=== PATIENT | male | born 1990 | race African-American/Black ===

== ENCOUNTER 2017-04-29 01:00 | Emergency (ER) | payer MEDICAID, OTHER ==
[~2017-04-29] VITALS: Ht 172.7 cm; Wt 95.3 kg
[2017-04-29 01:00] VITALS: BP 130/75
[~2017-04-29 01:00] MED LIST: ASPI81CH43 PO; Atorvastatin Calcium PO; CIPR-173 PO; ENA10T PO
[2017-04-29 01:25] LABS: Basophils # (auto) 0 uL; Basophils % (auto) 0.5 % (0.0-2.0); CONDITION Y; DEFINITIVE SEE PRINTOUT; Eosinophils # (auto) 0.1 uL; Eosinophils % (auto) 1.5 % (0.0-7.0); Hematocrit 45.1 % (41.0-53.0); Hemoglobin 14.9 g/dL (13.5-17.5); Lymphocytes # (auto) 3.2 uL; Lymphocytes % (auto) 36.2 % (10.0-50.0); Mean Corpuscular Hemoglobin 26.5 pg (28.0-32.0); Mean Corpuscular Hgb Conc. 33.1 g/dL (32.0-36.0); Mean Corpuscular Volume 80.1 fL (80.0-100.0); Mean Platelet Volume 10.3 fL (6.9-10.8); Monocytes # (auto) 0.3 uL; Monocytes % (auto) 3.5 % (0.0-12.0); Neutrophils # (auto) 5.2 uL; Neutrophils % (auto) 58.3 % (37.0-80.0); Platelet Count (auto) 211 10^3/uL (140-450); Red Cell Distribution Width 14.2 % (11.8-14.3); SUSPECT SEE PRINTOUT; White Blood Cell 8.9 10^3/uL (4.4-10.8)
[2017-04-29 01:38] LABS: Prothrombin Time 10.9 sec (9.37-12.3)
[2017-04-29 01:43] LABS: Albumin 4.3 g/dL (3.4-5.0); Anion Gap 8 (5-15); Aspartate Aminotransferase 31 U/L (15-37); BUN/Creatinine Ratio 13.1; Blood Urea Nitrogen 13 mg/dL (7-18); Calcium 8.2 mg/dL (8.5-10.1); Carbon Dioxide 25 mmol/L (21-32); Chloride 110 mmol/L (98-107); GFR African American 116 mL/min; GFR Non-African American 96 mL/min; Glucose 96 mg/dL (74-106); Potassium 3.9 mmol/L (3.5-5.1); Sodium 143 mmol/L (136-145)
[2017-04-29 01:46] LABS: Temperature: 20.5 C (20.0-25.0)
[2017-04-29 01:47] LABS: Alkaline Phosphatase 99 U/L (45-117); Bilirubin, Total 0.3 mg/dL (0.2-1.0); Total Protein 7.6 g/dL (6.4-8.2)
== END 2017-04-29 04:38 | disposition left against medical advice (07) ==
LOC: EDBD 01:00 → ER 01:03
DX: R07.9 Chest pain, unspecified (principal); Z53.21 Procedure and treatment not carried out due to patient leaving prior to being seen by health care provider
CPT/HCPCS: 36415; 80053; 83880; 84484; 85025; 85610; 85730

== ENCOUNTER 2024-03-17 09:23 | Emergency (ER) | payer MEDICARE, MEDICAID ==
[~2024-03-17] VITALS: Ht 162.6 cm; Wt 76.1 kg
[~2024-03-17 09:23] MED LIST changes: -ENA10T PO; +ENAL1TAB46 PO
[2024-03-17 09:43] VITALS: BP 132/91; PULSE 94; RESP 18; TEMP 98.7; O2SAT 95
[2024-03-17] MEDS: LIDOCAINE W/ EPINEPHRINE 1% 20ML VIAL IJ ONE (10:03)
[2024-03-17] MEDS ORDERED: CEPH500C PO (11:54)
== END 2024-03-17 12:02 | disposition home or self-care (01) ==
LOC: ER 09:23
DX: S41.111A Laceration without foreign body of right upper arm, initial encounter (principal); I11.0 Hypertensive heart disease with heart failure; I50.9 Heart failure, unspecified; I25.2 Old myocardial infarction; F17.210 Nicotine dependence, cigarettes, uncomplicated; F15.90 Other stimulant use, unspecified, uncomplicated; Z98.890 Other specified postprocedural states; Z79.899 Other long term (current) drug therapy; W22.8XXA Striking against or struck by other objects, initial encounter; Y93.89 Activity, other specified; Y92.89 Other specified places as the place of occurrence of the external cause; Y99.8 Other external cause status
CPT/HCPCS: 12004

== ENCOUNTER 2024-03-30 19:34 | Emergency (ER) | payer MEDICARE, MEDICAID ==
[~2024-03-30] VITALS: Ht 162.6 cm; Wt 77.2 kg
[~2024-03-30 19:34] MED LIST changes: +CEPH500C PO
[2024-03-30 19:40] VITALS: BP 158/100; PULSE 94; RESP 16; O2SAT 98
== END 2024-03-30 22:35 | disposition home or self-care (01) ==
LOC: ER 19:34
DX: S51.811D Laceration without foreign body of right forearm, subsequent encounter (principal); I11.0 Hypertensive heart disease with heart failure; I50.89 Other heart failure; F17.210 Nicotine dependence, cigarettes, uncomplicated; F12.90 Cannabis use, unspecified, uncomplicated; Z98.890 Other specified postprocedural states; Z79.899 Other long term (current) drug therapy; Z79.84 Long term (current) use of oral hypoglycemic drugs; X58.XXXD Exposure to other specified factors, subsequent encounter

== ENCOUNTER 2024-09-08 00:19 | Emergency (ER) | payer MEDICARE, MEDICAID ==
[~2024-09-08] VITALS: Ht 165.1 cm; Wt 77.2 kg
--- NOTE | 2024-09-08 01:04 | DVH ---
EXAM: CT HEAD WITHOUT CONTRAST INDICATION: Severe headache TECHNIQUE: CT of the head without intravenous contrast. Radiation Dose : 1. Head: CT Dose: CTDI volume is 57 mGy. Dose-length product is 1004 mGy*cm The dose indicators for CT are the volume Computed Tomography (CT) Dose Index (CTDIvol) and the Dose Length Product (DLP), and are measured in units of mGy and mGy-cm, respectively. These indicators are not patient dose, but values generated from the CT scanner acquisition factors. The report includes radiation exposure data for exposures received during this examination. COMPARISON: None FINDINGS: There is no evidence of acute intracranial hemorrhage, extra-axial collection, mass effect, midline s hift, herniation or hydrocephalus. The ventricles, sulci and cisterns are age appropriate. The caraballo-white differentiation is intact. Patchy periventricular and subcortical white matter hypoattenuation is nonspecific but may be related to small vessel ischemic disease. The visualized paranasal sinuses and mastoid air cells are clear. The surrounding soft tissues and osseous structures are unremarkable. IMPRESSION: No acute intracranial abnormality.
[2024-09-08] MEDS ORDERED: CLON0.2T PO (01:22)
--- NOTE | 2024-09-08 01:22 | ED.PDOC ---
History of Present Illness HPI Comments Patient is a 34-year-old male who was brought to the ED via EMS for complaints of severe headache with a pronounced three days, but intermittent over the past few months. Patient has a history of hypertension for which he states he does not take blood pressure medication because it makes him feel strange. Patient has not followed up with his primary care provider for replacement of that medication. Patient's blood pressure at arrival was 168/102. Chief Complaint: Headache Time Seen by MD: 00:23 Primary Care Provider: LILA Reviewed Notes: Nurses Notes, Ui Developer Designer Notes Allergies: Coded Allergies: NO KNOWN ALLERGIES (Unverified , 10/26/12) Home Meds Active Scripts Cephalexin Monohydrate (Cephalexin) 500 Mg Cap, 1 CAP PO QID for 5 Days, #20 CAP 0 Refills Prov:KATIA MURRAY POWER REACTOR OPERATOR 03/17/24 Ciprofloxacin Hcl (Cipro) 500 Mg Tab, 1 TAB PO BID, #14 TAB Prov:BILL SALDANA MD 01/22/16 Enalapril Maleate (VASOTEC TABLET) 10 Mg Tb, 5 MG PO DAILY, #30 Prov:BILL SALDANA MD 01/22/16 [Atorvastatin Calcium] 20 MG TB No Conflict Check, 40 MG PO HS, #30 Prov:BILL SALDANA MD 01/22/16 Aspirin (Asa) 81 Mg Ch, 81 MG PO DAILY, #30 Prov:BILL SALDANA MD 01/22/16 Information Source: Patient, Emergency Med Personnel Mode of Arrival: Ambulatory Severity: Moderate Timing: Days Duration: Since onset Prehospital treatment: 12 Lead EKG Past Medical History PAST MEDICAL HISTORY: CHF, HTN, [place] Surgical History: Pacemaker Family History Family History: Unknown Social History Smoker: Cigarettes, Greater Than 1 Pack/Day Alcohol: Occasionally Drugs: Marijuana Lives In: Home Constitutional: denies: chills, diaphoresis, fatigue, fever, malaise, sweats, weakness, others EENTM: denies: blurred vision, double vision, ear bleeding, ear discharge, ear drainage, ear pain, ear ringing, eye pain, eye redness, hearing loss, mouth pain, mouth swelling, nasal discharge, nose bleeding, nose congestion, nose pain, photophobia, tearing, throat pain, throat swelling, voice changes, others Respiratory: denies: cough, hemoptysis, orthopnea, SOB at rest, shortness of breath, SOB with excertion, stridor, wheezing, others Cardiovascular: denies: chest pain, dizzy spells, diaphoresis, Dyspnea on exertion, edema, irregular heart beat, left arm pain, lightheadedness, palpitations, PND, syncope, others Gastrointestinal: denies: abdomen distended, abdominal pain, blood streaked bowels, constipated, diarrhea, dysphagia, difficulty swallowing, hematemesis, melena, nausea, poor appetite, poor fluid intake, rectal bleeding, rectal pain, vomiting, others Genitourinary: denies: burning, dysuria, flank pain, frequency, hematuria, incontinence, penile discharge, penile sore, pain, testicle pain, testicle swelling, urgency, others Neurological: reports: headache; denies: dizziness, fainting, left sided numbness, left sided weakness, numbness, paresthesia, pre-existing deficit, right sided numbness, right sided weakness, seizure, speech problems, tingling, tremors, weakness, others Musculoskeletal: denies: back pain, gout, joint pain, joint swelling, muscle pain, muscle stiffness, neck pain, others Integumetry: denies: bruises, change in color, change in hair/nails, dryness, laceration, lesions, lumps, rash, wounds, others Allergic/Immunocompromised: denies: Difficulty Healing, Frequent Infections, Hives, Itching, others Hematologic/Lymphatic: denies: anemia, blood clots, easy bleeding, easy bruising, swollen glands, others Endocrine: denies: excessive hunger, excessive sweating, excessive thirst, excessive urination, flushing, intolerance to cold, intolerance to heat, unexplained weight gain, unexplained weight loss, others Psychiatric: denies: anxiety, bipolar disorder, depression, hopeless, panic disorder, schizophrenia, sleepless, suicidal, others Physical Exam General Appearance: Moderate Distress (Patient [id number] distress at time of evaluation due to headache concerns.), Normal HEENT: Head (Unremarkable cranial evaluation. No signs of trauma. No skull depressions or deformities.), Normal ENT Inspection, Pharynx Normal, TMs Normal Neck: Full Range of Motion, Non-Tender, Normal, Normal Inspection Respiratory: Chest Non-Tender, Lungs Clear, No Accessory Muscle Use, No Respiratory Distress, Normal Breath Sounds Cardiovascular: No Edema, No JVD, No Murmur, No Gallop, Normal Peripheral Pulses, Regular Rate/Rhythm Breast Exam: Deferred Gastrointestinal: No Organomegaly, Non Tender, No Pulsatile Mass, Normal Bowel Sounds, Soft Genitalia: Deferred Pelvic: Deferred Rectal: Deferred Extremities: No calf tenderness, Normal capillary refill, Normal inspection, Normal range of motion, Non-tender, No pedal edema Neurologic: Alert, No Motor Deficits, Normal Affect, Normal Mood, No Sensory Deficits Cerebellar Function: Normal Reflexes: Normal Skin: Dry, Normal Color, Warm Lymphatic: No Adenopathy Was a procedure done? Was a procedure done?: No Differential Dx Considerations may include: Intracranial mass, subarachnoid hemorrhage, uncontrolled hypertension, headache X-Ray, Labs, Meds, VS Vital Signs Date Time Temp Pulse Resp B/P (MAP) Pulse Ox O2 Delivery O2 Flow Rate FiO2 09/08/24 00:19 98.3 96 18 168/102 (124) 98 X-Ray, Labs, Meds, VS Comment All studies performed the ED were evaluated by me personally. CT of the head was unremarkable for any acute intracranial process. No signs of mass effect or neoplasm. I believe the patient's suffers from headaches due to his poorly controlled blood pressure. Patient had good relief of symptoms status post medication dispensed. I will send the patient home with some rescue medication and have advised the patient to follow up with his primary care provider for discussions related to proper blood pressure medication management. Time of 1ST Reevaluation: : Reevaluation 1ST: Improved Consultation: PCP Patient Education/Counseling: Diagnosis, Treatment Family Education/Counseling: Diagnosis, Treatment Departure 1 Departure Time of Disposition: : Impression: Primary Impression: HTN (hypertension) Additional Impression: Headache Disposition: 01 HOME / SELF CARE / HOMELESS Condition: Stable Additional Instructions: Advised patient utilize medication as needed and additionally, patient needs to follow up with his primary care provider for discussions related to proper blood pressure medication management. e-Prescriptions Clonidine Hydrochloride (Clonidine Hcl) 0.2 Mg Tab 1 TAB PO Q12HP PRN, #20 TAB 0 Refills Prov: NINA TREVIÑO PAC 09/08/24 Discharged With: Self, Friend Critical Care Note Critical Care Time?: No Stability Stability form required: No Heart Score Heart Score: Heart Score Response (Comments) Value History N/A 0 EKG N/A 0 Age N/A 0 Risk Factors N/A 0 Troponin N/A 0 Total 0 NINA TREVIÑO [facility] Sep 08, 2024 01:22
[2024-09-08] MEDS: KETOROLAC TROMETH 60MG/2ML VIAL IM ONE (02:02)
[2024-09-08] MEDS: cloNIDine HCL 0.1 MG TAB PO ONE (02:02)
[2024-09-08 02:04] VITALS: TEMP 99; O2SAT 97
[2024-09-08 02:43] VITALS: BP 164/113; PULSE 94; RESP 12
== END 2024-09-08 03:15 | disposition home or self-care (01) ==
LOC: ER 00:19 → EDBD 00:19 → ER 03:15
DX: R51.9 Headache, unspecified (principal); I11.0 Hypertensive heart disease with heart failure; I50.9 Heart failure, unspecified; I25.2 Old myocardial infarction; F17.210 Nicotine dependence, cigarettes, uncomplicated; Z79.82 Long term (current) use of aspirin; Z79.899 Other long term (current) drug therapy; Z95.0 Presence of cardiac pacemaker
CPT/HCPCS: 70450; 96372; 99285; J1885